=== PATIENT | female | born 1975 | race Caucasian/White ===

== ENCOUNTER 2017-06-02 22:22 | Emergency (ER) | payer BC, OTHER ==
[~2017-06-02] VITALS: Ht 165.1 cm; Wt 131.8 kg
[2017-06-02 22:27] VITALS: BP 154/91
[2017-06-02] MEDS ORDERED: LEVO100T5 PO (22:32)
[2017-06-02] MEDS ORDERED: GI COCKTAIL 50ML BTL(HYOSCYAMINE/MAALOX/LIDOCAINE VISCOUS)(1:3:1) PO ONE (22:45)
[2017-06-02 23:19] LABS: BASO % 0.3 % (0.0-1.0); EOS # 0.4 K/mm3 (0.0-0.50); EOS % 3.9 % (0.0-3.0); LARGE UNSTAINED CELL # 0.1 K/mm3 (0.0-0.4); LARGE UNSTAINED CELL % 1.3 % (0.0-4.0); LYMPH # 1.7 K/mm3 (1.5-4.5); LYMPH % 16.1 % (24.0-44.0); MEAN CORPUSCULAR HEMOGLOBIN 23.7 pg (27.0-33.0); MEAN CORPUSCULAR HGB CONC 30.9 g/dl (32.0-36.5); MEAN CORPUSCULAR VOLUME 76.5 fl (80.0-96.0); MONO # 0.6 K/mm3 (0.0-0.8); MONO % 6.1 % (0.0-5.0); NEUTROPHILS # 7.2 K/mm3 (1.8-7.7); NEUTROPHILS % 72.4 % (36.0-66.0); PLATELET COUNT, AUTOMATED 316 k/mm3 (150-450); RED CELL DISTRIBUTION WIDTH 17.4 % (11.5-14.5); WHITE BLOOD COUNT 9.9 K/mm3 (4.0-10.0)
[2017-06-02 23:33] LABS: INR 1.03
[2017-06-02 23:47] LABS: CONTROL LINE HCG INT CTR LINE PRESENT
[2017-06-02 23:57] LABS: ALBUMIN 3.2 GM/DL (3.2-5.2); ALBUMIN/GLOBULIN RATIO 0.73 (1.00-1.93); ALKALINE PHOSPHATASE 123 U/L (45-117); ALT/SGPT 34 U/L (12-78); ANION GAP 6 MEQ/L (8-16); AST/SGOT 24 U/L (15-37); BILIRUBIN,DIRECT < 0.1 MG/DL (0.0-0.2); BILIRUBIN,TOTAL 0.2 MG/DL (0.2-1.0); BLOOD UREA NITROGEN 15 MG/DL (7-18); CALCIUM LEVEL 8.6 MG/DL (8.5-10.1); CARBON DIOXIDE LEVEL 29 MEQ/L (21-32); CHLORIDE LEVEL 105 MEQ/L (98-107); CREATININE FOR GFR 0.94 MG/DL (0.55-1.02); FREE T4 1.05 NG/DL (0.76-1.46); GLOMERULAR FILTRATION RATE > 60.0 (>58); GLUCOSE, FASTING 108 MG/DL (70-105); POTASSIUM SERUM 4.6 MEQ/L (3.5-5.1); SODIUM LEVEL 140 MEQ/L (136-145); TOTAL PROTEIN 7.6 GM/DL (6.4-8.2)
[2017-06-03] MEDS ORDERED: ISOVUE-370 76% 100ML VIAL (Q9967) As Ordered ONE (01:00)
--- NOTE | 2017-06-03 01:50 | REPUSA ---
CLINICAL HISTORY: Dyspnea, exclude PE. TECHNIQUE: Multiple incremental axial, coronal and oblique images are obtained from the thoracic inle t to the upper abdomen. Intravenous contrast material was administered as per pulmonary embolism prot ocol. COMMENTS: There is excellent opacification of pulmonary arterial system without evidence for pulmonary embolism . Aorta is of normal caliber without evidence for dissection or aneurysm. There is no evidence of pleural or parenchymal mass. Bilateral basilar atelectatic pulmonary changes. There are no pleural effusions. There is no evidence of hilar or mediastinal lymphadenopathy. The he art and great vessels are within normal limits. Images of the upper abdomen demonstrate no evidence of adrenal mass. The bony structures are free of lytic or blastic lesions. Moderate hepatomegaly with fatty infiltration. Impacted gallstone at the neck of the gallbladder. A 1.5 cm enhancing lesion in the right hepatic lobe suggestive of a hemangioma. IMPRESSION: No evidence for pulmonary embolism. Hepatomegaly with fatty infiltration. Bilateral basilar atelectatic pulmonary changes. Cholelithiasis. Distended gallbladder with an impacted stone at its neck and mild diffuse thickening of the wall of the gallbladder. Further evaluation is suggested to exclude an acute inflammatory path ology of the gallbladder. Thank you for your kind referral of this patient.
[2017-06-03] MEDS ORDERED: OXYC1TAB23 PO (02:47)
[2017-06-03] MEDS ORDERED: ZOFR20TA PO (02:48)
--- NOTE | 2017-06-03 08:04 | REP ---
PA and lateral chest: The there are no comparisons. The lung cheema are clear. The cardiac size is normal The yanni, mediastinum, and bony thorax are unremarkable. Impression: Negative PA and lateral chest. Signed by Tam Stallings MD 06/03/2017 07:55 A
--- NOTE | 2017-06-03 20:26 | ECGEPIP ---
Stationary ECG Study [facility] - ED Test Date: 2017-06-02 Pat Name: DANIELLE JOSEPH Department: Room: - Gender: F [employer]scape Management Technician: : 1975 Requested By: JAJA VALERIO Order Number: [id number] Reading MD: Maggy Lopez Measurements Intervals Baker Rate: 81 P: 30 NC: 182 QRS: 59 QRSD: 94 T: 24 QT: 376 QTc: 437 Interpretive Statements SINUS RHYTHM NO PRIOR FOR COMPARISON Electronically Signed On 06-03-2017 20:25:42 EDT by Maggy Lopez
== END 2017-06-03 02:58 | disposition home or self-care (01) ==
LOC: M ED 22:22
DX: K81.0 Acute cholecystitis (principal); R16.0 Hepatomegaly, not elsewhere classified; K76.0 Fatty (change of) liver, not elsewhere classified; R07.9 Chest pain, unspecified; E03.9 Hypothyroidism, unspecified; Z79.899 Other long term (current) drug therapy
CPT/HCPCS: 36415; 71020; 71275; 80048; 80076; 82550; 82553; 83690; 83880; 84439; 84443; 84703; 85025; 85379; 85610; 85730; 86140; 93005; 93041; 94760; 99284; Q9967

== ENCOUNTER 2024-08-07 15:33 | Emergency (ER) | payer BC ==
[~2024-08-07] VITALS: Ht 162.6 cm; Wt 115.1 kg
[~2024-08-07 15:33] MED LIST: LEVO100T5 PO; OXYC1TAB23 PO; ZOFR4TAB16 PO
[2024-08-07] MEDS ORDERED: IBUP-1022 PO (20:19)
[2024-08-07] MEDS ORDERED: CEPH500C PO (20:19)
[2024-08-07] MEDS: CEPHALEXIN 500 MG CAP PO ONE (20:49)
[2024-08-07] MEDS: IBUPROFEN 600MG TAB PO ONE (20:49)
[2024-08-07 21:01] VITALS: BP 135/77; TEMP 97.8; O2SAT 98
== END 2024-08-07 21:00 | disposition home or self-care (01) ==
LOC: M ED 15:33
DX: I80.00 Phlebitis and thrombophlebitis of superficial vessels of unspecified lower extremity (principal); L03.90 Cellulitis, unspecified; E03.9 Hypothyroidism, unspecified; Z86.718 Personal history of other venous thrombosis and embolism; Z79.01 Long term (current) use of anticoagulants; Z79.899 Other long term (current) drug therapy

== ENCOUNTER 2025-07-31 16:38 | Emergency (ER) | payer BC ==
[~2025-07-31] VITALS: Ht 162.6 cm; Wt 111.6 kg
[~2025-07-31 16:38] MED LIST changes: +CEPH500C PO; +IBUP600T42 PO
[2025-07-31 18:03] LABS: BASO # 0.1 10^3/uL (0.0-0.2); BASO % 0.6 % (0.0-1.0); EOS # 0.6 10^3/uL (0.0-0.5); EOS % 6.2 % (0.0-3.0); LYMPH # 1.4 10^3/uL (1.5-5.0); LYMPH % 15.8 % (24.0-44.0); MONO # 0.7 10^3/uL (0.0-0.8); MONO % 8.4 % (2.0-8.0); NEUTROPHILS # 6.1 10^3/uL (1.5-8.5); NEUTROPHILS % 68.7 % (36.0-66.0); PLATELET COUNT, AUTOMATED 236 10^3/uL (150-450)
[2025-07-31 18:24] LABS: ERYTHROCYTE SEDIMENTATION RATE 38 mm/hr (0-20)
[2025-07-31 18:33] LABS: C REACTIVE PROTEIN QUANTITATIV 1.86 MG/DL (<1.0)
[2025-07-31 18:38] LABS: CALCIUM LEVEL 9.0 MG/DL (8.5-10.1); CARBON DIOXIDE LEVEL 26 MMOL/L (20-31); CHLORIDE LEVEL 103 MMOL/L (98-107); CREATININE FOR GFR 0.59 MG/DL (0.55-1.30); GLOMERULAR FILTRATION RATE > 90.0 (>58); POTASSIUM SERUM 5.0 MMOL/L (3.5-5.1); SODIUM LEVEL 139 MMOL/L (136-145)
[2025-07-31] MEDS ORDERED: CEPH500C PO (19:20)
[2025-07-31] MEDS: CEPHALEXIN 500 MG CAP PO ONE (19:29)
[2025-07-31 19:30] VITALS: BP 118/66; TEMP 97.9; O2SAT 100
== END 2025-07-31 19:39 | disposition home or self-care (01) ==
LOC: M ED 16:38
DX: I82.812 Embolism and thrombosis of superficial veins of left lower extremity (principal)